=== PATIENT | female | born 1975 | race Caucasian/White ===

== ENCOUNTER 2020-05-08 21:04 | Observation (INO) ==
[2020-05-08] MEDS ORDERED: Ipratropium/Albuterol Neb 3 ML IH ONE (21:22)
[2020-05-08] MEDS ORDERED: 0.9 % Sodium Chloride 1,000 ML IVC ONE (21:22)
[2020-05-08] MEDS ORDERED: methylPREDNISolone 125 MG/2 ML VIAL IVP ONE (21:29)
[2020-05-08 22:04] LABS: Basophils % 0.5 %; Hemoglobin 15.9 g/dL (11.5-15.4); Immature Granulocytes % 0.5 % (0-4); Lymphocytes # 1.1 K/mcL (0.6-4.6); Lymphocytes % 12.2 %; Mean Corpuscular HGB Conc 34.6 g/dL (31.6-35.5); Mean Corpuscular Hemoglobin 32.1 pg (28.0-33.3); Mean Corpuscular Volume 92.7 fL (83.0-100.0); Mean Platelet Volume 10.9 fL (9.4-12.4); Monocytes # 0.2 K/mcL (0.0-1.3); Monocytes % 2.2 %; Neutrophils # 7.3 K/mcL (1.6-8.9); Platelet Count 239 K/mcL (140-400); Red Blood Count 4.96 M/mcL (3.82-4.97); Red Cell Distribution Width 11.8 % (11.5-14.5); Segmented Neutrophils % 84.6 %; White Blood Count 8.7 K/mcL (4.3-11.1)
[2020-05-08 22:26] LABS: BUN/Creatinine Ratio 19 (6-26); Blood Urea Nitrogen 15 mg/dL (6-20); Calcium 9.4 mg/dL (8.6-10.3); Carbon Dioxide 20 mEq/L (23-29); Chloride 104 mEq/L (98-107); Glucose 153 mg/dL (70-105); Osmolality,Calculated 284 (280-300); Potassium 3.8 mEq/L (3.5-5.1); Sodium 135 mEq/L (136-145); Troponin I < 0.03 ng/mL (< 0.04); eGFR For African Americans > 60 (> 60); eGFR For Non-African Americans > 60 (> 60)
[2020-05-09] MEDS ORDERED: Piperacillin/Tazobactam 3.375 GM in 0.9 % Sodium Chloride Mini Bag 100 ML IVPB ONE (00:14)
[2020-05-09] MEDS ORDERED: Orphenadrine 60 MG/2 ML VIAL IVP ONE (00:28)
[2020-05-09] MEDS ORDERED: Ketorolac 15 MG/ML VIAL IVP ONE (00:28)
[2020-05-09] MEDS ORDERED: Naloxone 0.4 MG/ML INJ IVP PRN ×2 (02:06→08:02)
[2020-05-09] MEDS ORDERED: Dextromethorphan Polistrx(12h) 30 MG/5 ML UDC PO PRN (02:10)
[2020-05-09] MEDS ORDERED: Ketorolac 30 MG/ML VIAL IVP PRN (02:11)
[2020-05-09] MEDS ORDERED: 0.9 % Sodium Chloride 1,000 ML IVC SCH ×2 (02:15)
[2020-05-09 03:42] LABS: Basophils % 0.1 %; Hematocrit 42.8 % (35.3-44.9); Hemoglobin 14.7 g/dL (11.5-15.4); Immature Granulocytes % 0.5 % (0-4); Lymphocytes # 0.9 K/mcL (0.6-4.6); Lymphocytes % 5.1 %; Mean Corpuscular HGB Conc 34.3 g/dL (31.6-35.5); Mean Corpuscular Hemoglobin 31.2 pg (28.0-33.3); Mean Corpuscular Volume 90.9 fL (83.0-100.0); Mean Platelet Volume 10.8 fL (9.4-12.4); Monocytes # 0.3 K/mcL (0.0-1.3); Monocytes % 1.6 %; Neutrophils # 15.4 K/mcL (1.6-8.9); Platelet Count 257 K/mcL (140-400); Red Blood Count 4.71 M/mcL (3.82-4.97); Red Cell Distribution Width 11.8 % (11.5-14.5); Segmented Neutrophils % 92.7 %; White Blood Count 16.6 K/mcL (4.3-11.1)
[2020-05-09 03:59] LABS: Alanine Aminotransferase 59 Units/L (7-52); Albumin 4.1 g/dL (3.5-5.7); Albumin/Globulin Ratio 1.3 (1.1-2.2); Alkaline Phosphatase 72 Units/L (34-104); Aspartate Amino Transferase 51 Units/L (13-39); BUN/Creatinine Ratio 20 (6-26); Bilirubin,Total 0.8 mg/dL (0.3-1.0); Blood Urea Nitrogen 15 mg/dL (6-20); Carbon Dioxide 20 mEq/L (23-29); Chloride 104 mEq/L (98-107); Globulin 3.1 g/dL (2.4-3.5); Glucose 158 mg/dL (70-105); Osmolality,Calculated 282 (280-300); Sodium 134 mEq/L (136-145); Total Protein 7.2 g/dL (6.4-8.9); eGFR For African Americans > 60 (> 60); eGFR For Non-African Americans > 60 (> 60)
[2020-05-09] MEDS ORDERED: Acetaminophen 325 MG TABLET PO PRN (08:02)
[2020-05-09] MEDS ORDERED: Ondansetron 4 MG/2 ML VIAL IVP PRN (08:02)
[2020-05-09] MEDS: Nicotine 14 MG PATCH.TD24 TD SCH (10:34)
[2020-05-09] MEDS: Morphine Sulfate 2 MG/ML SYRINGE IVP PRN ×3 (10:35→20:20)
[2020-05-09] MEDS ORDERED: 0.9 % Sodium Chloride 1,000 ML IVC ONE (11:05)
[2020-05-09] MEDS: predniSONE 20 MG TABLET PO SCH (13:03)
[2020-05-09] MEDS: Doxycycline 100 MG CAPSULE PO SCH ×2 (13:03→20:36)
[2020-05-09] MEDS: Piperacillin/Tazobactam 3.375 GM in 0.9 % Sodium Chloride Mini Bag 100 ML IVPB SCH (16:15)
[2020-05-09] MEDS ORDERED: *HR* LORazepam 2 MG/ML VIAL IVP ONE (18:57)
[2020-05-09] MEDS: Ipratropium/Albuterol Neb 3 ML IH SCH ×2 (19:50→20:37)
[2020-05-09] MEDS ORDERED: Famotidine 20 MG TABLET PO ONE (20:10)
[2020-05-10] MEDS: Ipratropium/Albuterol Neb 3 ML IH SCH ×4 (00:18→11:32)
[2020-05-10] MEDS: Piperacillin/Tazobactam 3.375 GM in 0.9 % Sodium Chloride Mini Bag 100 ML IVPB SCH ×2 (00:55→09:59)
[2020-05-10] MEDS: Morphine Sulfate 2 MG/ML SYRINGE IVP PRN ×2 (00:59→05:09)
[2020-05-10] MEDS ORDERED: *HR* LORazepam 2 MG/ML VIAL IVP ONE ×2 (01:08→06:04)
[2020-05-10] MEDS ORDERED: levoFLOXacin 750 MG/150 ML 750 MG/150 ML BAG IVPB SCH (09:00)
[2020-05-10] MEDS: Doxycycline 100 MG CAPSULE PO SCH (09:59)
[2020-05-10] MEDS: predniSONE 20 MG TABLET PO SCH (09:59)
[2020-05-10] MEDS: Nicotine 14 MG PATCH.TD24 TD SCH (10:00)
[2020-05-10] MEDS ORDERED: hydrOXYzine pamoate 25 MG CAPSULE PO ONE (10:38)
[2020-05-10 11:12] VITALS: BP 124/74
== END 2020-05-10 11:41 | disposition left against medical advice (07) ==
LOC: EMEROOARM 21:04 → CDU 21:04 → SUATTDRO 05-09 01:32 → 2NNU 05-09 01:46 → CDU 05-09 02:11 → 2ANU 05-09 18:25
PROVIDERS: ADMIT Pharmacist; ATTEND Pharmacist